=== PATIENT | male | born 1995 ===

== ENCOUNTER 2016-11-17 20:17 | Emergency (ER) | payer OTHER ==
[2016-11-17 20:56] VITALS: TEMP 98.4; O2SAT 100
--- NOTE | 2016-11-17 22:06 | C.PDOC ---
History Of Present Illness A 21 y/o M comes in after punching a window with his left hand and sustaining an abrasion and a puncture wound to the volar medial aspect of the left forearm [employer]. Pt is concerned for a possibility of foreign body residuals. Pt notes removing a piece of glass from his arm [employer]. Denies numbness, weakness, decrease ROM, nausea, vomiting, fever, chills, or any other complaints. Time Seen by Provider: 11/17/16 20:59 Chief Complaint (Nursing): Abnormal Skin Integrity History Per: Patient History/Exam Limitations: no limitations Onset/Duration Of Symptoms: Hrs Current Symptoms Are (Timing): Still Present Location Of Injury: Left: Forearm Quality Of Symptoms: Painful Severity: Mild Recent travel outside of the [place]: No Additional History Per: Patient Past Medical History Reviewed: Historical Data, Nursing Documentation, Vital Signs Vital Signs: Last Vital Signs Temp 98.4 F 11/17/16 20:51 Pulse 65 11/17/16 20:51 Resp 16 11/17/16 20:51 BP 129/80 11/17/16 20:51 Pulse Ox 100 11/17/16 22:32 Family History: States: Unknown Family Hx - Social History Hx Tobacco Use: No Hx Alcohol Use: Yes Hx Substance Use: No - Immunization History Hx Tetanus Toxoid Vaccination: No Hx Influenza Vaccination: Yes Hx Pneumococcal Vaccination: Yes Review Of Systems Except As Marked, All Systems Reviewed And Found Negative. Constitutional: Negative for: Fever, Chills Gastrointestinal: Negative for: Nausea, Vomiting Musculoskeletal: Positive for: Hand Pain (Abrasion to the left hand and puncture wound to the volar mid aspect of the left forearm). Negative for: Other (Decrease ROM) Neurological: Negative for: Weakness, Numbness Physical Exam - Physical Exam Appears: Non-toxic, No Acute Distress Skin: Warm, Dry Head: Atraumatic, Normacephalic Extremity: Normal ROM, Capillary Refill (<2secs), No Swelling, Other (+ 1 1 cm puncture with abrasion to the medial mid left forearm) Extremity: Bilateral: Normal Color And Temperature Pulses: Left Radial: Normal, Right Radial: Normal Neurological/Psych: Oriented x3, Normal Speech, Normal Cognition, Normal Motor, Normal Sensation, Other (No focal deficit) ED Course And Treatment O2 Sat by Pulse Oximetry: 100 (RA) Pulse Ox Interpretation: Normal Medical Decision Making Medical Decision Making: A 21 y/o M comes in for a puncture wound with an abrasion to the left forearm, to r/o FB. Plans: -Tetanus -XRAY left forearm -Reassess Wound irrigated, (-) FB visible ad (-) FB palpable. Clean dressing applied. XR L forearm: (-) FB, (-) fracture, as read by PA XR results d/w the patient in great detail. On re-evaluation, pt is in no acute distress at this time. Pt was advised to f/u with the clinic in 2 days for re- evaluation. Disposition - Disposition Referrals: [facility] [Outside] Disposition: HOME/ ROUTINE Disposition Time: 22:30 Condition: STABLE Prescriptions: Cephalexin [Keflex] 500 mg PO Q6 #28 capsule Instructions: Puncture Wound (ED), Acute Wound Care (ED) Forms: Work Excuse Print Language: BELGIAN - Clinical Impression Clinical Impression: Puncture wound, Abrasion - PA / SPARMAKER / Resident Statement MD/DO has reviewed & agrees with the documentation as recorded. - Scribe Statement The provider has reviewed the documentation as recorded by the Scribsheryl grimaldo All medical record entries made by the Everibsheryl were at my direction and personally dictated by me. I have reviewed the chart and agree that the record accurately reflects my personal performance of the history, physical exam, medical decision making, and the department course for this patient. I have also personally directed, reviewed, and agree with the discharge instructions and disposition.
[2016-11-17 22:41] VITALS: BP 121/78; PULSE 70; RESP 18
--- NOTE | 2016-11-18 09:06 | RAD ---
PROCEDURE: Radiographs of the Left Forearm HISTORY: r/o FB COMPARISON: None available. TECHNIQUE: Frontal and lateral views obtained. FINDINGS: BONES: No fracture or destructive lesion. JOINT SPACES: Unremarkable. OTHER FINDINGS: There are volar superficial soft tissue changes within it overlying bandage present no radiopaque foreign body here seen IMPRESSION: Superficial volar soft tissue changes with overlying bandage. No radiopaque foreign body here noted
== END 2016-11-17 22:30 | disposition home or self-care (01) ==
LOC: C.ER 20:17
DX: S51.832A Puncture wound without foreign body of left forearm, initial encounter (principal); S60.512A Abrasion of left hand, initial encounter; W25.XXXA Contact with sharp glass, initial encounter; Y92.89 Other specified places as the place of occurrence of the external cause

== ENCOUNTER 2018-05-04 14:41 | Emergency (ER) | payer OTHER ==
[2018-05-04 15:02] VITALS: BP 146/100; PULSE 96; RESP 18; TEMP 98.3; O2SAT 99
--- NOTE | 2018-05-04 16:17 | CT ---
Date of service: 05/04/2018 PROCEDURE: CT HEAD WITHOUT CONTRAST. HISTORY: r/o ICH COMPARISON: None available. TECHNIQUE: Axial computed tomography images were obtained through the head/brain without intravenous contrast. Radiation dose: Total exam DLP = 1105.85 mGy-cm. This CT exam was performed using one or more of the following dose reduction techniques: Automated exposure control, adjustment of the mA and/or kV according to patient size, and/or use of iterative reconstruction technique. FINDINGS: HEMORRHAGE: No intracranial hemorrhage. BRAIN: No mass effect or edema. No atrophy or chronic microvascular ischemic changes. VENTRICLES: No hydrocephalus. CALVARIUM: Unremarkable. PARANASAL SINUSES: Unremarkable as visualized. No significant inflammatory changes. MASTOID AIR CELLS: Unremarkable as visualized. No inflammatory changes. OTHER FINDINGS: None. IMPRESSION: No acute intracranial pathology identified.
--- NOTE | 2018-05-04 20:09 | C.PDOC ---
History Of Present Illness 23 y/o male presents to the ER complaining of headache which has been present for the past 2 weeks. Patient states that he took pain medications with some relief. Patient denies having worse headache of life, thunderclap headache, changes in vision, fever, chills, cough, and recent travel. Time Seen by Provider: 05/04/18 15:03 Chief Complaint (Nursing): Lower Extremity Problem/Injury History Per: Patient History/Exam Limitations: no limitations Onset/Duration Of Symptoms: Days Current Symptoms Are (Timing): Still Present Severity: Moderate Past Medical History Reviewed: Historical Data, Nursing Documentation, Vital Signs Vital Signs: Last Vital Signs Temp 98.3 F 05/04/18 15:00 Pulse 96 H 05/04/18 15:00 Resp 18 05/04/18 15:00 BP 146/100 H 05/04/18 15:00 Pulse Ox 99 05/04/18 15:00 - Medical History PMH: No Chronic Diseases Surgical History: No Surg Hx Family History: States: No Known Family Hx - Social History Hx Tobacco Use: No Hx Alcohol Use: Yes Hx Substance Use: No - Immunization History Hx Tetanus Toxoid Vaccination: No Hx Influenza Vaccination: Yes Hx Pneumococcal Vaccination: Yes Review Of Systems Except As Marked, All Systems Reviewed And Found Negative. Constitutional: Negative for: Fever, Chills Eyes: Negative for: Vision Change Respiratory: Negative for: Cough Neurological: Positive for: Headache Physical Exam - Physical Exam Appears: Non-toxic, No Acute Distress Skin: Normal Color, Warm, Dry Head: Atraumatic, Normacephalic Eye(s): bilateral: Normal Inspection, PERRL, EOMI Nose: Normal Oral Mucosa: Moist Neck: Supple Chest: Symmetrical Cardiovascular: Rhythm Regular Respiratory: Normal Breath Sounds, No Rales, No Rhonchi, No Wheezing Neurological/Psych: Oriented x3, Normal Speech, Normal Motor, Normal Sensation ED Course And Treatment O2 Sat by Pulse Oximetry: 99 (RA) Pulse Ox Interpretation: Normal - CT Scan/US CT-Head Other Rad Studies (CT/US): Read By Radiologist, Radiology Report Reviewed CT/US Interpretation: ADDENDUM: Upon further review, there is subtle low attenuation noted on the left anterior to the caudate head, possibly coaptation of the frontal horn, lateral ventricle. Outpatient MRI without contrast may be considered for confirmation. Findings discussed with Dr. Goff on 05/04/18 at 4:24 p.m. [ Addendum Report Added by Jami Shaffer MD at 05/04/2018 16:25:04 ]. Date of service: 05/04/2018. PROCEDURE: CT HEAD WITHOUT CONTRAST. HISTORY: r/o ICH. COMPARISON: None available. TECHNIQUE: Axial computed tomography images were obtained through the head/brain without intravenous contrast. Radiation dose: Total exam DLP = 1105.85 mGy-cm. This CT exam was performed using one or more of the following dose reduction techniques: Automated exposure control, adjustment of the mA and/or kV according to patient size, and/or use of iterative reconstruction technique. FINDINGS: HEMORRHAGE: No intracranial hemorrhage. BRAIN: No mass effect or edema. No atrophy or chronic microvascular ischemic changes. VENTRICLES: No hydrocephalus. CALVARIUM: Unremarkable. PARANASAL SINUSES: Unremarkable as visualized. No significant inflammatory changes. MASTOID AIR CELLS: Unremarkable as visualiz ed. No inflammatory changes. OTHER FINDINGS: None. IMPRESSION: No acute intracranial pathology identified. Medical Decision Making Medical Decision Making: Plan: --CT-Head Disposition - Disposition Referrals: [facility] [Outside] [facility] [Outside] Disposition: HOME/ ROUTINE Disposition Time: 16:20 Condition: GOOD Additional Instructions: BHARAT BROTHERS, thank you for letting us take care of you today. The emergency medical care you received today was directed at your acute symptoms. If you were prescribed any medication, please fill it and take as directed. It may take several days for your symptoms to resolve. Return to the Emergency Department if your symptoms worsen, do not improve, or if you have any other problems. Please contact your doctor or call one of the physicians/clinics you have been referred to that are listed on the Patient Visit Information form that is included in your discharge packet. Bring any paperwork you were given at [facility] with you along with any medications you are taking to your follow up visit. Our treatment cannot replace ongoing medical care by a primary care provider outside of the emergency department. Thank you for allowing the [facility] team to be part of your care today. Follow up with the clinic in 3-5 days for re-evaluation and further management. Prescriptions: Ibuprofen [Motrin] 600 mg PO Q6 PRN #20 tab PRN Reason: Pain, Moderate (4-7) Instructions: Headache, Adult (DC) Forms: [email or web address] (Slovak) - Clinical Impression Clinical Impression: Headache - Scribe Statement The provider has reviewed the documentation as recorded by the Scribe Lou Laura Provider Attestation: All medical record entries made by the Scribe were at my direction and personally dictated by me. I have reviewed the chart and agree that the record accurately reflects my personal performance of the history, physical exam, medical decision making, and the department course for this patient. I have also personally directed, reviewed, and agree with the discharge instructions and disposition.
== END 2018-05-04 16:47 | disposition home or self-care (01) ==
LOC: C.ER 14:41
DX: R51 Headache (principal)